=== PATIENT | female | born 1935 | race Caucasian/White ===

== ENCOUNTER → 2017-03-05 | Outpatient (REF) | payer MEDICARE, OTHER ==
[~2017-03-05] MED LIST: BIOT50004 PO; CALC600T7 PO; DILT240C75 PO; ENAL20TA PO; FURO40TA2 PO; ISTA0.5S OU; LATA5OPD OU; METO50TA7 PO; MULT1TAB8 PO; NATU400T PO; OCUVCAP2 PO; OMEP40CA2 PO; PACE0.05 PO; REST0.05 OU; SIMV20TA2 PO; VITA100066 PO; XARE20TA PO; [UNRECOGNIZED DRUG - CODE] PO
[2017-03-05 17:37] LABS: ANION GAP 9 MEQ/L (8-16); BLOOD UREA NITROGEN 21 MG/DL (7-18); CARBAMAZEPINE (TEGRETOL) LEVEL 6.6 UG/ML (4.0-10.0); CARBON DIOXIDE LEVEL 25 MEQ/L (21-32); CHLORIDE LEVEL 109 MEQ/L (98-107); CREATININE FOR GFR 1.34 MG/DL (0.55-1.02); GLOMERULAR FILTRATION RATE 40.2 (>32); GLUCOSE, FASTING 82 MG/DL (83-110); POTASSIUM SERUM 4.4 MEQ/L (3.5-5.1); SODIUM LEVEL 143 MEQ/L (136-145)
[2017-03-05 17:49] LABS: BASO # 0.1 10^3/uL (0.0-0.2); EOS % 0.3 % (0.0-3.0); IMMATURE GRANULOCYTE % 0.1 % (0-0); LYMPH # 1.2 10^3/uL (1.5-4.5); LYMPH % 16.2 % (24.0-44.0); MEAN CORPUSCULAR HEMOGLOBIN 30.6 pg (27.0-33.0); MEAN CORPUSCULAR HGB CONC 32.8 g/dl (32.0-36.5); MEAN CORPUSCULAR VOLUME 93.4 fl (80.0-96.0); MONO # 0.6 10^3/uL (0.0-0.8); MONO % 8.2 % (0.0-5.0); NEUTROPHILS # 5.4 10^3/uL (1.8-7.7); NEUTROPHILS % 74.2 % (36.0-66.0); PLATELET COUNT, AUTOMATED 301 10^3/uL (150-450); RED CELL DISTRIBUTION WIDTH 13.9 % (11.5-14.5); WHITE BLOOD COUNT 7.3 10^3/uL (4.0-10.0)
[2017-03-05 21:46] LABS: ERYTHROCYTE SEDIMENTATION RATE 25 mm/hr (0-30)
== END ==
LOC: M LAB REF 16:33
PROVIDERS: ATTEND Family Medicine
DX: H35.30 Unspecified macular degeneration (principal); Z95.5 Presence of coronary angioplasty implant and graft; H26.9 Unspecified cataract; N18.3 Chronic kidney disease, stage 3 (moderate); M35.3 Polymyalgia rheumatica; G50.8 Other disorders of trigeminal nerve

== ENCOUNTER → 2017-03-13 | Outpatient (CLI) | payer MEDICARE, OTHER ==
--- NOTE | 2017-03-13 12:00 | REP ---
MAXILLOFACIAL CT WITHOUT CONTRAST: HISTORY: Trigeminal neuralgia. Minimal mucosal thickening is present in the left maxillary sinus. The remaining sinuses are clear. The ostiomeatal units are patent. The middle and inferior nasal turbinates are partially paradoxical. 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 There is minimal deviation of the nasal septum to the left. A spur is present arising from the left side of the nasal septum. The cribriform plate, medial loving of the orbits and optic canals are intact. The carotid canals form a segment of the posterolateral loving of the sphenoid sinus. The nasopharynx is normal in appearance. The parotid glands are normal in size and density. IMPRESSION: There is no acute or chronic sinusitis. Signed by Bruce Landis MD 03/13/2017 12:32 P
== END ==
LOC: M RAD 11:03
PROVIDERS: ATTEND Specialist
DX: G50.0 Trigeminal neuralgia (principal)

== ENCOUNTER → 2017-03-19 | Outpatient (CLI) | payer MEDICARE, OTHER ==
[~2017-03-19] MED LIST changes: +ISOVUE-370 76% 100ML VIAL (Q9967) As Ordered ONE
--- NOTE | 2017-03-19 09:07 | REP ---
CT brain without and with IV contrast: History: Trigeminal neuralgia. CT contrast dose: 75 mL of Isovue [address] findings: Bone window settings demonstrate an intact bony calvarium. Visualized paranasal sinuses are clear. Vascular calcification is seen in the distal carotid arteries bilaterally. There is no evidence of intraorbital abnormality. There is mild diffuse cerebral atrophy. No infarct, hemorrhage, mass, extra-axial fluid collection or midline shift is seen. There are minimal small vessel changes. No extra-axial fluid collection is seen. Postcontrast imaging shows enhancement in normal vessels. No abnormal contrast enhancement is appreciated. Impression: Mild diffuse atrophy and vascular calcification. Some small vessel changes. No acute intracranial lesion. Signed by Saul Barber MD 03/19/2017 12:38 P
== END ==
LOC: M RAD 07:26
PROVIDERS: ATTEND Psychiatry & Neurology Neurology
DX: G50.0 Trigeminal neuralgia (principal)
CPT/HCPCS: 70470; Q9967

== ENCOUNTER 2017-10-18 21:27 | Emergency (ER) | payer MEDICARE, OTHER ==
[2017-10-19] MEDS: GI COCKTAIL 50ML BTL(HYOSCYAMINE/MAALOX/LIDOCAINE VISCOUS)(1:3:1) PO (00:45)
[2017-10-19 01:06] LABS: BASO # 0.1 10^3/uL (0.0-0.2); BASO % 0.9 % (0.0-1.0); HEMATOCRIT 38.9 % (36.0-47.0); HEMOGLOBIN 13.2 g/dl (12.0-15.5); IMMATURE GRANULOCYTE % 0.3 % (0-3.0); LYMPH % 25.9 % (24.0-44.0); MEAN CORPUSCULAR HEMOGLOBIN 30.6 pg (27.0-33.0); MEAN CORPUSCULAR HGB CONC 33.9 g/dl (32.0-36.5); MEAN CORPUSCULAR VOLUME 90.3 fl (80.0-96.0); MONO # 0.9 10^3/uL (0.0-0.8); MONO % 12.1 % (0.0-5.0); NEUTROPHILS # 4.6 10^3/uL (1.8-7.7); NEUTROPHILS % 60.8 % (36.0-66.0); PLATELET COUNT, AUTOMATED 259 10^3/uL (150-450); RED BLOOD COUNT 4.31 10^6/uL (4.00-5.40); RED CELL DISTRIBUTION WIDTH 15.4 % (11.5-14.5); WHITE BLOOD COUNT 7.5 10^3/uL (4.0-10.0)
[2017-10-19 01:33] LABS: ALBUMIN/GLOBULIN RATIO 0.94 (1.00-1.93); ALKALINE PHOSPHATASE 64 U/L (45-117); ALT/SGPT 23 U/L (12-78); ANION GAP 9 MEQ/L (8-16); AST/SGOT 19 U/L (7-37); BILIRUBIN,DIRECT 0.2 MG/DL (0.0-0.2); BILIRUBIN,TOTAL 0.5 MG/DL (0.2-1.0); BLOOD UREA NITROGEN 37 MG/DL (7-18); CALCIUM LEVEL 8.4 MG/DL (8.8-10.2); CARBON DIOXIDE LEVEL 26 MEQ/L (21-32); CHLORIDE LEVEL 107 MEQ/L (98-107); CK-MB VALUE MASS < 1.0 NG/ML (<3.6); CPK CREATINE PHOSPHOKINASE 44 U/L (26-192); CREATININE FOR GFR 2.15 MG/DL (0.55-1.30); GLOMERULAR FILTRATION RATE 23.3 (>32); GLUCOSE, FASTING 102 MG/DL (70-100); LIPASE 225 U/L (73-393); MB/CK RELATIVE INDEX 2.27 (< OR =4); POTASSIUM SERUM 3.4 MEQ/L (3.5-5.1); SODIUM LEVEL 142 MEQ/L (136-145); TOTAL PROTEIN 6.2 GM/DL (6.4-8.2); TROPONIN I < 0.02 NG/ML (< 0.10)
== END 2017-10-19 05:25 | disposition home or self-care (01) ==
LOC: M ED 10-19 05:25
DX: N28.9 Disorder of kidney and ureter, unspecified (principal); Z95.0 Presence of cardiac pacemaker; I48.91 Unspecified atrial fibrillation; I10 Essential (primary) hypertension; K21.9 Gastro-esophageal reflux disease without esophagitis; I51.7 Cardiomegaly; K57.30 Diverticulosis of large intestine without perforation or abscess without bleeding; K44.9 Diaphragmatic hernia without obstruction or gangrene; Z79.82 Long term (current) use of aspirin; Z79.899 Other long term (current) drug therapy; Z91.89 Other specified personal risk factors, not elsewhere classified; Z91.030 Bee allergy status; Z88.0 Allergy status to penicillin
CPT/HCPCS: 74176

== ENCOUNTER → 2017-11-05 | Outpatient (REF) | payer MEDICARE, OTHER ==
[2017-11-05 18:48] LABS: ANION GAP 11 MEQ/L (8-16); BLOOD UREA NITROGEN 29 MG/DL (7-18); CALCIUM LEVEL 8.8 MG/DL (8.8-10.2); CARBON DIOXIDE LEVEL 25 MEQ/L (21-32); CHLORIDE LEVEL 110 MEQ/L (98-107); GLOMERULAR FILTRATION RATE 30.6 (>32); GLUCOSE, FASTING 88 MG/DL (70-100); POTASSIUM SERUM 4.2 MEQ/L (3.5-5.1); SODIUM LEVEL 146 MEQ/L (136-145)
== END ==
LOC: M LAB REF 17:23
DX: N18.3 Chronic kidney disease, stage 3 (moderate) (principal); R42 Dizziness and giddiness
CPT/HCPCS: 80048

== ENCOUNTER → 2017-11-08 | Outpatient (REF) | payer MEDICARE, OTHER | LOC: M LAB REF 12:42 | DX: N18.3 Chronic kidney disease, stage 3 (moderate) (principal); Z87.440 Personal history of urinary (tract) infections | CPT/HCPCS: 87086 ==

== ENCOUNTER → 2018-08-09 | Outpatient (REF) | payer MEDICARE, OTHER ==
[~2018-08-09] MED LIST changes: +AMIO200T PO; +AMLO5TAB6 PO; +ASPI81TA26 PO; +ATOR1TAB19 PO; +BIMA01SOL; +BIMA01SOL OU; +BRIM0.2S13; +BROM0.07 OD; -DILT240C75 PO; +DILT240C82 PO; +DORZ2SOL5 OU; +IRBE150T14 PO; -ISOVUE-370 76% 100ML VIAL (Q9967) As Ordered ONE; +LATA0.0013 OU; -LATA5OPD OU; +REST0.057 OU
[2018-08-09 18:32] LABS: ALBUMIN 3.6 GM/DL (3.2-5.2); BILIRUBIN,TOTAL 0.5 MG/DL (0.2-1.0); CALCIUM LEVEL 8.8 MG/DL (8.8-10.2); CHOLESTEROL RISK RATIO 3.271 (<5); CREATININE FOR GFR 1.43 MG/DL (0.55-1.30); GLOMERULAR FILTRATION RATE 37.2 (>32); MAGNESIUM LEVEL 2.3 MG/DL (1.8-2.4); POTASSIUM SERUM 4.5 MEQ/L (3.5-5.1); THYROID STIMULATING HORMONE 1.22 uIU/ML (0.358-3.740); TOTAL PROTEIN 7.3 GM/DL (6.4-8.2)
== END ==
LOC: M LAB REF 16:17
PROVIDERS: ATTEND Family Medicine
DX: Z00.00 Encounter for general adult medical examination without abnormal findings (principal); I48.91 Unspecified atrial fibrillation; M35.3 Polymyalgia rheumatica; I12.9 Hypertensive chronic kidney disease with stage 1 through stage 4 chronic kidney disease, or unspecified chronic kidney disease; H35.30 Unspecified macular degeneration; Z95.5 Presence of coronary angioplasty implant and graft

== ENCOUNTER → 2020-12-31 | Outpatient (REF) | payer MEDICARE, OTHER ==
[~2020-12-31] MED LIST changes: -AMIO200T PO; +AMIO200T3 PO; +AMLO1TAB24 PO; -AMLO5TAB6 PO; +CALC-212 PO; -CALC600T7 PO; -ENAL20TA PO; +ENAL20TA11 PO; -OMEP40CA2 PO; +OMEP40CA4 PO; -SIMV20TA2 PO; +SIMV20TA22 PO
== END ==
LOC: M LAB REF 12:55
PROVIDERS: ATTEND Internal Medicine Nephrology
DX: N18.32 Chronic kidney disease, stage 3b (principal); E83.42 Hypomagnesemia

== ENCOUNTER → 2021-03-15 | Outpatient (REF) | payer MEDICARE, OTHER | LOC: M LAB REF 15:57 | PROVIDERS: ATTEND Surgery | DX: L72.3 Sebaceous cyst (principal) ==

== ENCOUNTER 2021-11-23 10:48 | Emergency (ER) | payer MEDICARE, OTHER ==
[~2021-11-23] VITALS: Ht 157.5 cm; Wt 75.9 kg
[~2021-11-23 10:48] MED LIST changes: -AMIO200T3 PO; +AMIO200T49 PO
[2021-11-23] MEDS ORDERED: COMB0.2S (11:03)
[2021-11-23] MEDS ORDERED: RHOP0.02 (11:03)
[2021-11-23] MEDS ORDERED: NS 500 ML IV ONE (11:15)
[2021-11-23 11:54] LABS: BASO # 0.1 10^3/uL (0.0-0.2); BASO % 1.2 % (0.0-1.0); EOS # 0.2 10^3/uL (0.0-0.5); EOS % 3.1 % (0.0-3.0); HEMATOCRIT 44.6 % (36.0-47.0); HEMOGLOBIN 14.5 g/dl (12.0-15.5); LYMPH # 1.1 10^3/uL (1.5-5.0); MEAN CORPUSCULAR HEMOGLOBIN 31.1 pg (27.0-33.0); MEAN CORPUSCULAR HGB CONC 32.5 g/dl (32.0-36.5); MEAN CORPUSCULAR VOLUME 95.7 fl (80.0-96.0); MONO # 0.6 10^3/uL (0.0-0.8); MONO % 9.7 % (2.0-8.0); NEUTROPHILS # 4.1 10^3/uL (1.5-8.5); NEUTROPHILS % 67.8 % (36.0-66.0); PLATELET COUNT, AUTOMATED 237 10^3/uL (150-450); RED BLOOD COUNT 4.66 10^6/uL (4.00-5.40); WHITE BLOOD COUNT 6.1 10^3/uL (4.0-10.0)
[2021-11-23 12:48] LABS: RSV AMPLIFICATION NEGATIVE (NEGATIVE)
[2021-11-23 14:35] LABS: CK-MB VALUE MASS 1.5 NG/ML (<3.6); MB/CK RELATIVE INDEX 2.88 (< OR =4)
[2021-11-23 14:42] LABS: CREATININE FOR GFR 1.33 MG/DL (0.55-1.30); GLOMERULAR FILTRATION RATE 40.2 (>32); POTASSIUM SERUM 4.4 MEQ/L (3.5-5.1)
[2021-11-23 14:42] LABS: CK-MB VALUE MASS 1.3 NG/ML (<3.6); MB/CK RELATIVE INDEX 2.55 (< OR =4)
[2021-11-23 14:43] LABS: ALBUMIN 3.1 GM/DL (3.2-5.2); BILIRUBIN,DIRECT 0.1 MG/DL (0.0-0.2); BILIRUBIN,TOTAL 0.5 MG/DL (0.2-1.0); CALCIUM LEVEL 8.6 MG/DL (8.8-10.2); FREE T4 1.86 NG/DL (0.76-1.46); THYROID STIMULATING HORMONE 0.904 uIU/ML (0.358-3.740); TOTAL PROTEIN 6.5 GM/DL (6.4-8.2)
[2021-11-23 15:33] VITALS: BP 162/82
== END 2021-11-23 15:48 | disposition home or self-care (01) ==
LOC: M ED 10:48
DX: R53.1 Weakness (principal); I10 Essential (primary) hypertension; K21.9 Gastro-esophageal reflux disease without esophagitis; Z86.79 Personal history of other diseases of the circulatory system; Z88.0 Allergy status to penicillin; Z91.030 Bee allergy status; Z91.09 Other allergy status, other than to drugs and biological substances; Z95.0 Presence of cardiac pacemaker; Z79.899 Other long term (current) drug therapy